=== PATIENT | female | born 1980 | race Hispanic/Latino ===

== ENCOUNTER 2016-10-13 15:10 | Emergency (ER) | payer MEDICAID, OTHER ==
[2016-10-13 15:10] VITALS: BMI 25.0
[2016-10-13 15:22] VITALS: BP 117/63; PULSE 94; RESP 18; TEMP 99.1; O2SAT 96
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
--- NOTE | 2016-10-13 17:08 | CT ---
PROCEDURE: CT HEAD WITHOUT CONTRAST. HISTORY: headache COMPARISON: 02/25/2014 TECHNIQUE: Axial computed tomography images were obtained through the head/brain without intravenous contrast. Radiation dose: Total exam DLP = 722 mGy-cm. This CT exam was performed using one or more of the following dose reduction techniques: Automated exposure control, adjustment of the mA and/or kV according to patient size, and/or use of iterative reconstruction technique. FINDINGS: HEMORRHAGE: No intracranial hemorrhage. BRAIN: No mass effect or edema. No atrophy or chronic microvascular ischemic changes. VENTRICLES: Unremarkable. No hydrocephalus. CALVARIUM: Unremarkable. PARANASAL SINUSES: Unremarkable as visualized. No significant inflammatory changes. MASTOID AIR CELLS: Unremarkable as visualized. No inflammatory changes. OTHER FINDINGS: None. IMPRESSION: Normal CT of the Head.
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
== END 2016-10-13 17:38 | disposition home or self-care (01) ==
LOC: ED 15:10
DX: S00.83XA Contusion of other part of head, initial encounter (principal); Y08.89XA Assault by other specified means, initial encounter; Y93.89 Activity, other specified; Y92.008 Other place in unspecified non-institutional (private) residence as the place of occurrence of the external cause

== ENCOUNTER 2017-01-10 20:04 | Emergency (ER) | payer MEDICAID ==
[2017-01-10 20:05] VITALS: BMI 25.0
[2017-01-10 20:18] VITALS: BP 113/73; PULSE 89; RESP 17; TEMP 98.7; O2SAT 99
[2017-01-10] MEDS ORDERED: Sodium Chloride 0.9% 1,000 ML IV STA (20:29)
[2017-01-10 20:50] LABS: BASO # 0.04 K/mm3 (0.0-2.0); BASO % 0.4 % (0.0-3.0); EOS # 0.1 (0.0-0.7); EOS % 1.2 % (1.5-5.0); GRAN # 8.14 (1.4-6.5); GRAN % 75.5 % (50.0-68.0); HEMATOCRIT 33.8 % (36.0-48.0); LYMPH % 18.4 % (22.0-35.0); MEAN CELL VOLUME 85.8 fl (80.0-105.0); MEAN CORPUSCULAR HEMOGLOBIN 28.4 pg (25.0-35.0); MEAN CORPUSCULAR HGB CONC 33.1 g/dl (31.0-37.0); MEAN PLATELET VOLUME 11.9 fl (7.0-11.0); MONO # 0.5 (0.1-0.6); MONO % 4.5 % (1.0-6.0); RED CELL DISTRIBUTION WIDTH 12.8 % (11.5-14.5); WHITE BLOOD COUNT 10.8 10^3/ul (4.5-11.0)
[2017-01-10 20:51] LABS: URINE BILIRUBIN NEGATIVE (NEGATIVE); URINE BLOOD NEGATIVE (NEGATIVE); URINE GLUCOSE (UA) NEGATIVE (NEGATIVE); URINE KETONE NEGATIVE (NEGATIVE); URINE LEUKOCYTE ESTERASE NEGATIVE Leu/uL (NEGATIVE); URINE PROTEIN NEGATIVE mg/dL (<30 mg/dL); URINE UROBILINOGEN 0.2 E.U./dL (<1 E.U./dL)
[2017-01-10 20:52] LABS: URINE APPEARANCE CLEAR (CLEAR); URINE COLOR YELLOW (YELLOW)
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
[2017-01-10 20:58] LABS: INR 0.99 (0.93-1.08); PARTIAL THROMBOPLASTIN TIME 30.6 Seconds (23.7-30.8)
[2017-01-10 21:08] LABS: ALB/GLOB RATIO 1.4 (1.1-1.8); ALKALINE PHOSPHATASE 53 U/L (38-133); ALT/SGPT 23 U/L (7-56); AST/SGOT 13 U/L (15-39); BILIRUBIN,TOTAL 0.3 mg/dL (0.2-1.3); BLOOD UREA NITROGEN 3 mg/dL (7-21); CALCIUM 9.1 mg/dL (8.4-10.5); CARBON DIOXIDE 20 mmol/L (21-33); CHLORIDE 107 mmol/L (98-107); GFR AFRICAN-AMERICAN > 60; GLUCOSE,RANDOM 86 mg/dL (70-110); LIPASE 32 U/L (23-300); POTASSIUM 3.7 mmol/L (3.6-5.0); SODIUM 137 mmol/L (132-148)
--- NOTE | 2017-01-10 22:34 | US ---
EXAM: US , Transvaginal CLINICAL HISTORY: 36 years old, female; Pain; Other: Llq pain; Gestational age or lmp: 11/27/16; ; Additional info: Left adexal pain TECHNIQUE: Real-time transvaginal obstetrical ultrasound of the maternal pelvis and a first trimester with image documentation. Transvaginal imaging was used for better evaluation of the fetus and adnexa. COMPARISON: No relevant prior studies available. FINDINGS: Gestation: A single intrauterine gestation is identified with a crown-rump length measuring 7.1 mm, corresponding to an approximate gestational age of 6 weeks and 4 days. cardiac activity is identified there is 133 beats per minute. Placenta/amniotic fluid: Cannot be adequately evaluated due to the early gestational age. Uterus/cervix: A single subcentimeter fibroid is identified, within the posterior body of the uterus. Ovaries: The right ovary is unremarkable in echogenicity and size measuring 2.5 x 1.5 x 2.8 cm. The left ovary measures 4.0 x 2.3 x 2.6 cm. Doppler blood flow is detected bilaterally. Free fluid: No free fluid. IMPRESSION: Single intrauterine gestation with an approximate gestational age of 6 weeks and 4 days. cardiac activity is identified. Subcentimeter fibroid. No free fluid.
== END 2017-01-10 22:40 | disposition home or self-care (01) ==
LOC: ED 20:04
DX: O20.0 Threatened abortion (principal); Z3A.01 Less than 8 weeks gestation of pregnancy
CPT/HCPCS: 76817; 80053; 81003; 83690; 84702; 84703; 85025; 85610; 85730; 96360; 99283; J7040

== ENCOUNTER 2017-02-03 14:44 | Emergency (ER) | payer MEDICAID ==
[2017-02-03 14:44] VITALS: BMI 25.0
[2017-02-03 14:57] VITALS: TEMP 98.6; O2SAT 98
--- NOTE | 2017-02-03 15:08 | ED PDOC ---
Arrival/HPI - General Chief Complaint: Abdominal Pain Time Seen by Provider: 02/03/17 15:01 Historian: Patient - History of Present Illness Narrative History of Present Illness (Text): 02/03/17 15:02 36 y/o female, last sonogram transvaginal 01/10/2017 show that she was 6 weeks and 4 days with the cardiac activitiy 133 bpm with subcentimeter fibroid, nkda, approx. 9 weeks?, c/o lower pelvic cramp and pain x 1 day. Pt. stated that she decided to abort her which her obgyn gave her misoprostol for termination, took the misoprostol intravaginally on 01/30/2017, been having pain/bleeding and passed out large amount of tissues on 02/01/2017, asymptomatic on 02/02/2017, started to have pain and cramp again with vaginal spotting today which indicated her to come to the ER. Pt. has no nausea or vomiting, no fever or chills, no night sweat, no dizziness, no rash, no palpitation, no change in vision, no abdominal pain, no nausea or vomiting, no dizziness, no homicidal or suicidal ideation, no auditory or visual hallucination, no other medical or psychological complaints. Past Medical History - Provider Review Nursing Documentation Reviewed: Yes - Past History Past History: No Previous - Infectious Disease Hx of Infectious Diseases: None - Tetanus Immunization Tetanus Immunization: Unknown - Past Medical History Past Medical History: No Previous - Cardiac Hx Cardiac Disorders: No - Pulmonary Hx Respiratory Disorders: No - Neurological Hx Seizures: Yes (epilepsy) - HEENT Hx HEENT Disorder: No - Renal Hx Renal Disorder: No - Endocrine/Metabolic Hx Endocrine Disorders: No - Hematological/Oncological Hx Cancer: No - Integumentary Hx Dermatological Disorder: No - Musculoskeletal/Rheumatological Hx Musculoskeletal Disorders: No - Gastrointestinal Hx Gastrointestinal Disorders: No - Genitourinary/Gynecological Hx Sexually Transmitted Diseases: No - Psychiatric Hx Anxiety: Yes Hx Substance Use: Yes (ON VIVITROL) - Surgical History Hx Section: Yes (X5) - Anesthesia Hx Anesthesia: Yes - Suicidal Assessment Feels Threatened In Home Enviroment: No Family/Social History - Physician Review Nursing Documentation Reviewed: Yes Family/Social History: Unknown Family HX Smoking Status: Smoker Currrent Status Unknown Hx Alcohol Use: No Hx Substance Use: Yes (ON VIVITROL) Substance used: heroine, cocaine Hx Substance Use Treatment: Yes Allergies/Home Meds Allergies/Adverse Reactions: Allergies No Known Allergies Allergy (Verified 10/13/16 15:15) Review of Systems - Review of Systems Constitutional: absent: Fatigue, Fevers Eyes: absent: Vision Changes Respiratory: absent: SOB, Cough Cardiovascular: absent: Chest Pain Gastrointestinal: absent: Abdominal Pain, Diarrhea, Nausea, Vomiting Genitourinary Female: Vaginal Bleeding, Other (+pelvic cramp). absent: Dysuria , Frequency, Vaginal Discharge Musculoskeletal: absent: Arthralgias, Back Pain Skin: absent: Rash, Pruritis Neurological: absent: Headache, Dizziness Psychiatric: absent: Anxiety, Depression, Suicidal Ideation Physical Exam Vital Signs Reviewed: Yes Vital Signs Temp Pulse Resp BP Pulse Ox 02/03/17 16:44 89 18 123/64 98 02/03/17 14:56 98.6 F 90 18 125/63 98 Temperature: Afebrile Blood Pressure: Normal Pulse: Regular Respiratory Rate: Normal Appearance: Positive for: Well-Appearing, Non-Toxic, Comfortable Pain Distress: Moderate Mental Status: Positive for: Alert and Oriented X 3 - Systems Exam Head: Present: Atraumatic, Normocephalic Pupils: Present: PERRL Extroacular Muscles: Present: EOMI Conjunctiva: Present: Normal Mouth: Present: Moist Mucous Membranes Neck: Present: Normal Range of Motion Respiratory/Chest: Present: Clear to Auscultation, Good Air Exchange. No: Respiratory Distress, Accessory Muscle Use, Wheezes, Retracting, Rhonchi Cardiovascular: Present: Regular Rate and Rhythm, Normal S1, S2. No: Murmurs Abdomen: Present: Normal Bowel Sounds. 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 No: Vaginal Lesions, Adenexal Tenderness, Adenexal Mass, Cervical Motion Tendernes, Odor Back: Present: Normal Inspection. No: CVA Tenderness Upper Extremity: Present: Normal Inspection. No: Cyanosis, Edema Lower Extremity: Present: Normal Inspection. No: Edema Neurological: Present: GCS=15, CN II-XII Intact, Speech Normal Skin: Present: Warm, Dry, Normal Color. No: Rashes Psychiatric: Present: Alert, Oriented x 3, Normal Insight, Normal Concentration Medical Decision Making ED Course and Treatment: 02/03/17 15:16 -labs/ua/beta hcg -type and screen -transvaginal sonogram -IVF/tylenol 650mg po -Observe and reassess 02/03/17 17:17 -Labs are non-significant except beta hcg 2538 from [id number], this is significantly decreased which is likely signs of complete -UA show possible wbc 5-10 with moderate bacteria, urine culture ordered -Blood type: O+ -Sonogram show: thickened endomettrium with may represent hemorrhage and there is slight increase vascularity within the endometrium near the fundus and possible retained products. NO evidence of intrauterine gestation. -Discussed the case with Dr. Ferraro and agreed to consult with our obgyn as the patient's obgyn is from [facility]. 02/03/17 17:38 -I spoke to DR. Aguilar (obgyn), discussed the case in detail including labs/ radiology results and the previous sonogram from 12/2016 with confirmed intrauterine , no observation or transfer indicated at this point, no D &C indicated at this time either, suggest to treat the pain and discharge home with repeat beta hcg in 3 days. -I discussed the consult with DR. Ferraro and he agreed on the dispo and agreed with NSAIDs as pain med. -IV toradol ordered, no active bleeding noted but there is clot. -Discharge home with giovanna avitiad, your beta hcg from 12/2016 was 16534 and today 02/03/2017 is 2538, YOU HAVE TO REPEAT THE BETA HCG ON 02/06/2017 TO CONFIRMED THERES IS TREND AND TO ENSURE THERE IS NO RETAINED PRODUCT, follow up with your own pmd and obgyn within 2 days, return to the ER for any new or worsening signs or symptoms. - Lab Interpretations Lab Results: 02/03/17 15:10 02/03/17 15:10 Lab Results 02/03/17 15:50: Urine Color Yellow, Urine Appearance Sl cloudy, Urine pH 6.5, Ur Specific [place] <= 1.005, Urine Protein Negative, Urine Glucose (UA) Negative, Urine Ketones Negative, Urine Blood Large H, Urine Nitrate Negative, Urine Bilirubin Negative, Urine Urobilinogen 0.2, Ur Leukocyte Esterase Negative , Urine RBC 20 - 25, Urine WBC 5 - 10, Ur Epithelial Cells 6 - 8, Urine Bacteria Mod 02/03/17 15:10: Blood Type O POSITIVE, Antibody Screen Negative, BBK History Checked No verified bt 02/03/17 15:10: Sodium 139, Potassium 3.6, Chloride 105, Carbon Dioxide 24, Anion Gap 14, BUN 7, Creatinine 0.6, Est GFR ( Amer) > 60, Est GFR (Non- Af Amer) > 60, Random Glucose 85, Calcium 8.8, Total Bilirubin 0.4, AST 14, ALT 18, Alkaline Phosphatase 67, Total Protein 7.0, Albumin 3.9, Globulin 3.1, Albumin/Globulin Ratio 1.3 02/03/17 15:10: Beta HCG, Quant 2538.40 H 02/03/17 15:10: WBC 10.4, RBC 4.05, Hgb 11.8 L, Hct 34.8 L, MCV 85.9, MCH 29.1, MCHC 33.9, RDW 12.7, Plt Count 214, MPV 11.9 H, Gran % 76.2 H, Lymph % (Auto) 17.1 L, Davidson % (Auto) 4.4, Eos % (Auto) 1.9, Baso % (Auto) 0.4, Gran # 7.88 H, Lymph # 1.8, Davidson # 0.5, Eos # 0.2, Baso # 0.04 I have reviewed the lab results: Yes Interpretation: Abnormal lab values (beta hcg 2538 from [id number], +UTI) - RAD Interpretation Radiology Orders: 02/03/17 15:09 TRANSVAGINAL [US] Stat HISTORY: s/p induced x 4 days ago, c/o pain/bleedi COMPARISON: Comparison made with prior study 01/10/2017. TECHNIQUE: Transabdominal/transvaginal sonographic evaluation of the pelvis performed. . FINDINGS: UTERUS: Uterus is retroverted measuring approximately 10.0 x 8.1 x 6.8 cm cm. Normal in size and appearance. No fibroid or other mass lesion seen. ENDOMETRIUM: Endometrium is thickened measuring nearly 1.5 cm. Slight increased vascularity within the endometrium in the fundal region. Findings could represent retained products of conception at this level. . Endometrial hemorrhage and/or of clot within presumably also on accounts for some of the thickened endometrium though most of the remaining the endometrium the demonstrates no significant increased vascularity. No evidence of intrauterine gestation. Correlation with serial serum beta HCG and serial ultrasound recommended as the possibility of an ectopic cannot be excluded. CERVIX: Cervix measures approximate 3.1 cm. RIGHT OVARY: Measures approximately 3.0 x 1.1 x 1.3 cm. No solid mass. Normal flow. LEFT OVARY: Measures approximately 3.5 x 2.1 x 2.1 cm. No solid mass. Normal flow. FREE FLUID: No significant free fluid noted. OTHER FINDINGS: None. IMPRESSION: Thickened endometrium part of which may represent hemorrhage and/or classic within the endometrial canal however there is slight increased vascularity within the endometrium near the fundus and possible retained products must be excluded. Additionally, no evidence of intrauterine gestation. Correlation with serial serum beta HCG and serial ultrasound recommended as the possibility of ectopic cannot be excluded on this study. Note that these findings were discussed with emergency room MARTI Noguera at approximately 4:40 p.m. with written down and read back verification. Worm Farmer: Radiologist - Medication Orders Current Medication Orders: Discontinued Medications Acetaminophen (Tylenol 325mg Tab) 650 mg PO STAT STA Stop: 02/03/17 15:11 Last Admin: 02/03/17 15:32 Dose: 650 mg Sodium Chloride (Sodium Chloride 0.9%) 1,000 mls @ 999 mls/hr IV .Q1H1M STA Stop: 02/03/17 16:09 Last Admin: 02/03/17 15:32 Dose: 999 mls/hr - PA / LEASING DIRECTOR / Resident Statement / has reviewed & agrees with the documentation as recorded. Disposition/Present on Arrival - Present on Arrival Any Indicators Present on Arrival: No History of DVT/PE: No History of Uncontrolled Diabetes: No Urinary Catheter: No History of Decub. Ulcer: No History Surgical Site Infection Following: None - Disposition Have Diagnosis and Disposition been Completed?: Yes Diagnosis: , Vaginal bleeding, UTI (urinary tract infection) Disposition: HOME/ ROUTINE Disposition Time: 17:44 Patient Plan: Discharge Patient Problems: Current Active Problems Problem Status Onset Acute Vaginal bleeding Acute Condition: IMPROVED Additional Instructions: -Discharge home with giovanna avitiad, your beta hcg from 12/2016 was 71951 and today 02/03/2017 is 2538, YOU HAVE TO REPEAT THE BETA HCG ON 02/06/2017 TO CONFIRMED THERES IS TREND AND TO ENSURE THERE IS NO RETAINED PRODUCT, follow up with your own pmd and obgyn within 2 days, return to the ER for any new or worsening signs or symptoms. Prescriptions: Ibuprofen [Motrin Tab] 600 mg PO QID PRN #26 tab PRN Reason: Other Nitrofurantoin Macrocrystals [Macrobid] 100 mg PO BID #14 cap Referrals: PCP,RILEY [Primary Care Provider] - Follow up with primary Larry Aguilar DO [Staff Provider] - Follow up with primary [facility] [place] - Follow up with primary Forms: [facility] ([place]), WORK NOTE
[2017-02-03] MEDS ORDERED: Sodium Chloride 0.9% 1,000 ML IV STA (15:09)
[2017-02-03 15:55] LABS: BASO # 0.04 K/mm3 (0.0-2.0); BASO % 0.4 % (0.0-3.0); EOS # 0.2 (0.0-0.7); EOS % 1.9 % (1.5-5.0); GRAN # 7.88 (1.4-6.5); GRAN % 76.2 % (50.0-68.0); HEMATOCRIT 34.8 % (36.0-48.0); LYMPH # 1.8 (1.2-3.4); LYMPH % 17.1 % (22.0-35.0); MEAN CELL VOLUME 85.9 fl (80.0-105.0); MEAN CORPUSCULAR HEMOGLOBIN 29.1 pg (25.0-35.0); MEAN CORPUSCULAR HGB CONC 33.9 g/dl (31.0-37.0); MEAN PLATELET VOLUME 11.9 fl (7.0-11.0); MONO # 0.5 (0.1-0.6); MONO % 4.4 % (1.0-6.0); RED CELL DISTRIBUTION WIDTH 12.7 % (11.5-14.5); WHITE BLOOD COUNT 10.4 10^3/ul (4.5-11.0)
[2017-02-03 15:56] LABS: PH,URINE 6.5 (4.7-8.0); URINE BILIRUBIN NEGATIVE (NEGATIVE); URINE BLOOD LARGE (NEGATIVE); URINE GLUCOSE (UA) NEGATIVE (NEGATIVE); URINE KETONE NEGATIVE (NEGATIVE); URINE LEUKOCYTE ESTERASE NEGATIVE Leu/uL (NEGATIVE); URINE PROTEIN NEGATIVE mg/dL (<30 mg/dL); URINE UROBILINOGEN 0.2 E.U./dL (<1 E.U./dL)
[2017-02-03 16:05] LABS: URINE APPEARANCE SL CLOUDY (CLEAR); URINE COLOR YELLOW (YELLOW)
[2017-02-03 16:09] LABS: ALB/GLOB RATIO 1.3 (1.1-1.8); ALKALINE PHOSPHATASE 67 U/L (38-126); ALT/SGPT 18 U/L (7-56); AST/SGOT 14 U/L (14-36); BILIRUBIN,TOTAL 0.4 mg/dL (0.2-1.3); BLOOD UREA NITROGEN 7 mg/dL (7-21); CALCIUM 8.8 mg/dL (8.4-10.5); CARBON DIOXIDE 24 mmol/L (21-33); CHLORIDE 105 mmol/L (98-107); GFR AFRICAN-AMERICAN > 60; GLUCOSE,RANDOM 85 mg/dL (70-110); POTASSIUM 3.6 mmol/L (3.6-5.0); SODIUM 139 mmol/L (132-148)
[2017-02-03 16:10] LABS: URINE BACTERIA MOD (NEG); URINE RBC 20 - 25 /hpf (0-2)
--- NOTE | 2017-02-03 16:45 | US ---
HISTORY: s/p induced x 4 days ago, c/o pain/bleedi COMPARISON: Comparison made with prior study 01/10/2017. TECHNIQUE: Transabdominal/transvaginal sonographic evaluation of the pelvis performed. . FINDINGS: UTERUS: Uterus is retroverted measuring approximately 10.0 x 8.1 x 6.8 cm cm. Normal in size and appearance. No fibroid or other mass lesion seen. ENDOMETRIUM: Endometrium is thickened measuring nearly 1.5 cm. Slight increased vascularity within the endometrium in the fundal region. Findings could represent retained products of conception at this level. . Endometrial hemorrhage and/or of clot within presumably also on accounts for some of the thickened endometrium though most of the remaining the endometrium the demonstrates no significant increased vascularity. No evidence of intrauterine gestation. Correlation with serial serum beta HCG and serial ultrasound recommended as the possibility of an ectopic cannot be excluded. CERVIX: Cervix measures approximate 3.1 cm. RIGHT OVARY: Measures approximately 3.0 x 1.1 x 1.3 cm. No solid mass. Normal flow. LEFT OVARY: Measures approximately 3.5 x 2.1 x 2.1 cm. No solid mass. Normal flow. FREE FLUID: No significant free fluid noted. OTHER FINDINGS: None. IMPRESSION: Thickened endometrium part of which may represent hemorrhage and/or classic within the endometrial canal however there is slight increased vascularity within the endometrium near the fundus and possible retained products must be excluded. Additionally, no evidence of intrauterine gestation. Correlation with serial serum beta HCG and serial ultrasound recommended as the possibility of ectopic cannot be excluded on this study. Note that these findings were discussed with emergency room MARTI Noguera at approximately 4:40 p.m. with written down and read back verification.
[2017-02-03 18:17] VITALS: BP 118/57; PULSE 86; RESP 12
== END 2017-02-03 18:16 | disposition home or self-care (01) ==
LOC: ED 14:44
DX: N39.0 Urinary tract infection, site not specified (principal); O03.6 Delayed or excessive hemorrhage following complete or unspecified spontaneous abortion
CPT/HCPCS: 76830; 80053; 81001; 84702; 85025; 86850; 86900; 87086; 96374; 99284; J1885; J7040

== ENCOUNTER 2017-03-11 12:23 | Emergency (ER) | payer MEDICAID ==
[2017-03-11 12:24] VITALS: BMI 25.0
[2017-03-11 12:38] VITALS: BP 109/69; PULSE 82; TEMP 99.1
[2017-03-11 12:42] VITALS: RESP 17
[2017-03-11] MEDS ORDERED: cefTRIAXone (Rocephin) 1 gm Inj IM STA (13:18)
--- NOTE | 2017-03-11 13:24 | ED PDOC ---
Arrival/HPI - General Chief Complaint: Female Genitourinary Time Seen by Provider: 03/11/17 12:37 Historian: Patient - History of Present Illness Narrative History of Present Illness (Text): 03/11/17 13:20 36yo female who present to ED for removal of a lodged tampon x 3days. States she felt the tampon today. She states she forgot that she had a tampon on, and had sex which pushed the tampon deeper. Notes odorous smell from her vagina. she denies fever, chills, abdominal pain, urinary symptoms. Past Medical History - Provider Review Nursing Documentation Reviewed: Yes - Past History Past History: No Previous - Infectious Disease Hx of Infectious Diseases: None - Tetanus Immunization Tetanus Immunization: Unknown - Past Medical History Past Medical History: No Previous - Cardiac Hx Cardiac Disorders: No - Pulmonary Hx Respiratory Disorders: No - Neurological Hx Seizures: Yes (epilepsy) - HEENT Hx HEENT Disorder: No - Renal Hx Renal Disorder: No - Endocrine/Metabolic Hx Endocrine Disorders: No - Hematological/Oncological Hx Cancer: No - Integumentary Hx Dermatological Disorder: No - Musculoskeletal/Rheumatological Hx Musculoskeletal Disorders: No - Gastrointestinal Hx Gastrointestinal Disorders: No - Genitourinary/Gynecological Hx Sexually Transmitted Diseases: No - Psychiatric Hx Anxiety: Yes Hx Substance Use: Yes (ON VIVITROL) - Surgical History Hx Section: Yes (X5) - Anesthesia Hx Anesthesia: Yes - Suicidal Assessment Feels Threatened In Home Enviroment: No Family/Social History - Physician Review Nursing Documentation Reviewed: Yes Family/Social History: Unknown Family HX Smoking Status: Smoker Currrent Status Unknown Hx Alcohol Use: No Hx Substance Use: Yes (ON VIVITROL) Substance used: heroine, cocaine Hx Substance Use Treatment: Yes Allergies/Home Meds Allergies/Adverse Reactions: Allergies No Known Allergies Allergy (Verified 03/11/17 12:38) Review of Systems - Physician Review All systems were reviewed & negative as marked: Yes - Review of Systems Constitutional: Normal Eyes: Normal ENT: Normal Respiratory: Normal Cardiovascular: Normal Gastrointestinal: Normal Genitourinary Female: Other (Lodged foreign body) Musculoskeletal: Normal Skin: Normal Neurological: Normal Endocrine: Normal Hemo/Lymphatic: Normal Psychiatric: Normal Physical Exam Vital Signs Reviewed: Yes Vital Signs Temp Pulse Resp BP Pulse Ox 03/11/17 13:49 17 99 03/11/17 12:39 99.1 F 82 17 109/69 97 03/11/17 12:37 99.1 F 82 18 109/69 97 Temperature: Afebrile Blood Pressure: Normal Pulse: Regular Respiratory Rate: Normal Appearance: Positive for: Well-Appearing, Non-Toxic, Comfortable Pain Distress: None Mental Status: Positive for: Alert and Oriented X 3 - Systems Exam Head: Present: Atraumatic, Normocephalic Pupils: Present: PERRL Extroacular Muscles: Present: EOMI Conjunctiva: Present: Normal Mouth: Present: Moist Mucous Membranes Neck: Present: Normal Range of Motion Respiratory/Chest: Present: Clear to Auscultation, Good Air Exchange. No: Respiratory Distress, Accessory Muscle Use Cardiovascular: Present: Regular Rate and Rhythm, Normal S1, S2. No: Murmurs Abdomen: Present: Normal Bowel Sounds. No: Tenderness, Distention, Peritoneal Signs Genitourinary/Pelvic Exam: Present: Vaginal Bleeding (blood pool noted in vault) , Odor, Other (Tampon noted and removed) Back: Present: Normal Inspection Upper Extremity: Present: Normal Inspection. No: Cyanosis, Edema Lower Extremity: Present: Normal Inspection. No: Edema Neurological: Present: GCS=15, CN II-XII Intact, Speech Normal Skin: Present: Warm, Dry, Normal Color. No: Rashes Psychiatric: Present: Alert, Oriented x 3, Normal Insight, Normal Concentration Medical Decision Making ED Course and Treatment: 03/11/17 20:11 Very odrous tampon was removed by Dr. Boss with me in the room. PT was afebrile. she was however tx in ED with Rocephin and Dc home with Flagyl and PCN to avoid TSS. She was referred to her [employer]ILRO[employer] MECH[employer]IC. - Medication Orders Current Medication Orders: Discontinued Medications Ceftriaxone Sodium (Rocephin) 1 gm IM STAT STA PRN Reason: Protocol Stop: 03/11/17 13:19 Last Admin: 03/11/17 13:49 Dose: 1 gm IM Administration Charges Document 03/11/17 13:49 [email or web address] (Rec: 03/11/17 13:49 [email or web address] [facility] [id number]) Injection Site MAR Injection Site Left Gluteus Hira Charges for Administration # of IM Administrations 1 Disposition/Present on Arrival - Present on Arrival Any Indicators Present on Arrival: No History of DVT/PE: No History of Uncontrolled Diabetes: No Urinary Catheter: No History of Decub. Ulcer: No History Surgical Site Infection Following: None - Disposition Have Diagnosis and Disposition been Completed?: Yes Diagnosis: Foreign body Disposition: HOME/ ROUTINE Disposition Time: 13:30 Patient Plan: Discharge Condition: STABLE Discharge Instructions (ExitCare): Vaginal Foreign Body (ED) Additional Instructions: Follow up with your [employer]ILRO[employer] MECH[employer]IC Return to ED for any new symptoms Prescriptions: Metronidazole [Flagyl] 500 mg PO BID #14 tablet Penicillin VK [Penicillin VK Tab] 250 mg PO BID 10 Days #40 tab Referrals: [facility] [Outside] - Follow up with primary Forms: [employer] [facility] (Croatian)
[2017-03-11 13:50] VITALS: O2SAT 99
== END 2017-03-11 13:50 | disposition home or self-care (01) ==
LOC: ED 12:23
DX: T19.2XXA Foreign body in vulva and vagina, initial encounter (principal); X58.XXXA Exposure to other specified factors, initial encounter
CPT/HCPCS: 96372; 99283; J0696

== ENCOUNTER 2017-04-05 17:31 | Emergency (ER) | payer MEDICAID ==
[2017-04-05 17:40] VITALS: TEMP 98.5; BMI 25.8
--- NOTE | 2017-04-05 18:38 | ED PDOC ---
"Arrival/HPI - General Chief Complaint: Seizure Time Seen by Provider: 04/05/17 17:36 Historian: Patient - History of Present Illness Narrative History of Present Illness (Text): 04/05/17 18:38 A 36 year old female, whose past medical history includes bipolar disorder and seizure disorder, more frequent after head injury, (last seizure episode was 2015) was brought in by EMS to the emergency department s/p seizure episode complaining of headache. Patient reports last seizure was in 2015. Reports loss of consciousness, mother witnessed, for 3 to 5 minutes. Patient doesn't remember what happened before the seizure, but is aware of situation after episodes. Denies wetting herself and is unsure if bit her tongue. Reports she takes Ativan and Topamax medications, but hasn't taken Topamax today. Patient is an occasional drinker, last drink was yesterday. Denies any other complaints at this time. Symptom Onset: Sudden Symptom Course: Improving Activities at Onset: Rest Context: Home Past Medical History - Provider Review Nursing Documentation Reviewed: Yes - Past History Past History: No Previous - Infectious Disease Hx of Infectious Diseases: None - Tetanus Immunization Tetanus Immunization: Unknown - Past Medical History Past Medical History: No Previous - Cardiac Hx Cardiac Disorders: No - Pulmonary Hx Respiratory Disorders: No - Neurological Hx Seizures: Yes (epilepsy) - HEENT Hx HEENT Disorder: No - Renal Hx Renal Disorder: No - Endocrine/Metabolic Hx Endocrine Disorders: No - Hematological/Oncological Hx Cancer: No - Integumentary Hx Dermatological Disorder: No - Musculoskeletal/Rheumatological Hx Musculoskeletal Disorders: No - Gastrointestinal Hx Gastrointestinal Disorders: No - Genitourinary/Gynecological Hx Sexually Transmitted Diseases: No - Psychiatric Hx Anxiety: Yes Hx Depression: Yes Hx Substance Use: Yes (ON VIVITROL) - Surgical History Hx Section: Yes (X5) - Anesthesia Hx Anesthesia: Yes - Suicidal Assessment Feels Threatened In Home Enviroment: No Family/Social History - Physician Review Nursing Documentation Reviewed: Yes Family/Social History: No Known Family HX Smoking Status: Light Smoker < 10 Cigarettes Daily Hx Alcohol Use: Yes Frequency of alcohol use: Socially Hx Substance Use: Yes (ON VIVITROL) Substance used: heroine, cocaine Hx Substance Use Treatment: Yes Allergies/Home Meds Allergies/Adverse Reactions: Allergies No Known Allergies Allergy (Verified 04/05/17 17:56) Home Medications: Home Meds Medication Instructions Recorded Confirmed Citalopram Hydrobromide [Celexa] 20 mg PO DAILY 04/05/17 04/05/17 LORazepam [Ativan] 0.5 mg PO BID 04/05/17 04/05/17 Topiramate [Topamax] 50 mg PO TID 04/05/17 04/05/17 Review of Systems - Physician Review All systems were reviewed & negative as marked: Yes - Review of Systems Constitutional: absent: Fevers Neurological: Headache, Seizure. absent: Speech Changes Physical Exam Vital Signs Reviewed: Yes Vital Signs Temp Pulse Resp BP Pulse Ox 04/05/17 20:15 85 16 122/77 95 04/05/17 17:39 98.5 F 80 20 107/63 99 Temperature: Afebrile Blood Pressure: Normal Pulse: Regular Respiratory Rate: Normal Appearance: Positive for: Well-Appearing, Non-Toxic, Comfortable, Other (not postictal) Pain Distress: None Mental Status: Positive for: Alert and Oriented X 3 - Systems Exam Head: Present: Atraumatic, Normocephalic (no tongue injury) Pupils: Present: PERRL Extroacular Muscles: Present: EOMI Conjunctiva: Present: Normal Mouth: Present: Moist Mucous Membranes Neck: Present: Normal Range of Motion Respiratory/Chest: Present: Clear to Auscultation, Good Air Exchange, Other (no chest wall tenderness). No: Respiratory Distress, Accessory Muscle Use Cardiovascular: Present: Regular Rate and Rhythm, Normal S1, S2. No: Murmurs Abdomen: Present: Normal Bowel Sounds. No: Tenderness, Distention, Peritoneal Signs Back: Present: Normal Inspection Upper Extremity: Present: Normal Inspection, Normal ROM. No: Cyanosis, Edema Lower Extremity: Present: Normal Inspection, Normal ROM, Other (peripheral pulses 2+). No: Edema Neurological: Present: GCS=15, CN II-XII Intact, Speech Normal, Other (no focal deficits) Skin: Present: Warm, Dry, Normal Color. No: Rashes Psychiatric: Present: Alert, Oriented x 3, Normal Insight, Normal Concentration Medical Decision Making ED Course and Treatment: 04/05/17 18:35 Impression: A 36 year old female s/p seizure episode with headache. Plan: -- labs -- Reassess and disposition Progress Notes: 04/05/17 20:02 Patient is awake, alert and oriented X 4, seizure free during her 2 hr stay in the emergency department. Electrolyte within normal limits, waiting for Topamax level. Informed patient that will call if any abnormalities with Topamax levels. Discussed patient needs to be complaint withe medications without any alcohol use. Patient in agreement with plan to be discharged home. Patient is stable for discharge. Patient was instructed to follow up with physician or return if symptoms worsen or new concerning symptoms arise. - Lab Interpretations Lab Results: 04/05/17 18:50 04/05/17 18:50 Lab Results 04/05/17 18:50: Sodium 141, Potassium 3.9, Chloride 106, Carbon Dioxide 25, Anion Gap 13, BUN 10, Creatinine 0.7, Est GFR ( Amer) > 60, Est GFR (Non- Af Amer) > 60, Random Glucose 91, Calcium 9.8, Magnesium 2.3 H, Total Bilirubin 0.6, AST 20, ALT 24, Alkaline Phosphatase 67, Total Protein 7.9, Albumin 4.5, Globulin 3.4, Albumin/Globulin Ratio 1.3 04/05/17 18:50: WBC 7.7 D, RBC 4.31, Hgb 12.2, Hct 37.8, MCV 87.7, MCH 28.3, MCHC 32.3, RDW 12.3, Plt Count 227, MPV 12.3 H, Gran % 54.7, Lymph % (Auto) 35.7 H, [place] % (Auto) 6.5 H, Eos % (Auto) 2.1, Baso % (Auto) 1.0, Gran # 4.20, Lymph # 2.7, [place] # 0.5, Eos # 0.2, Baso # 0.08 I have reviewed the lab results: Yes - Scribe Statement The provider has reviewed the documentation as recorded by the Sayra Acevedo Provider Scribe Attestation: All medical record entries made by the Scribe were at my direction and personally dictated by me. I have reviewed the chart and agree that the record accurately reflects my personal performance of the history, physical exam, medical decision making, and the department course for this patient. I have also personally directed, reviewed, and agree with the discharge instructions and disposition. Disposition/Present on Arrival - Present on Arrival Any Indicators Present on Arrival: No History of DVT/PE: No History of Uncontrolled Diabetes: No Urinary Catheter: No History of Decub. Ulcer: No History Surgical Site Infection Following: None - Disposition Have Diagnosis and Disposition been Completed?: Yes Diagnosis: Seizure Disposition: HOME/ ROUTINE Disposition Time: 20:02 Patient Plan: Discharge Condition: FAIR Discharge Instructions (ExitCare): Epilepsy (ED) Print Language: CHADIAN Referrals: [facility] at [facility] [place] [Outside] - Follow up with primary Forms: Traveler | VIP (Khmer)"
[2017-04-05 19:06] LABS: BASO # 0.08 K/mm3 (0.0-2.0); EOS # 0.2 (0.0-0.7); EOS % 2.1 % (1.5-5.0); GRAN # 4.2 (1.4-6.5); GRAN % 54.7 % (50.0-68.0); HEMATOCRIT 37.8 % (36.0-48.0); LYMPH # 2.7 (1.2-3.4); LYMPH % 35.7 % (22.0-35.0); MEAN CELL VOLUME 87.7 fl (80.0-105.0); MEAN CORPUSCULAR HEMOGLOBIN 28.3 pg (25.0-35.0); MEAN CORPUSCULAR HGB CONC 32.3 g/dl (31.0-37.0); MEAN PLATELET VOLUME 12.3 fl (7.0-11.0); MONO # 0.5 (0.1-0.6); MONO % 6.5 % (1.0-6.0); RED CELL DISTRIBUTION WIDTH 12.3 % (11.5-14.5); WHITE BLOOD COUNT 7.7 10^3/ul (4.5-11.0)
[2017-04-05 19:15] LABS: ALB/GLOB RATIO 1.3 (1.1-1.8); ALKALINE PHOSPHATASE 67 U/L (38-126); ALT/SGPT 24 U/L (7-56); AST/SGOT 20 U/L (14-36); BILIRUBIN,TOTAL 0.6 mg/dL (0.2-1.3); BLOOD UREA NITROGEN 10 mg/dL (7-21); CALCIUM 9.8 mg/dL (8.4-10.5); CARBON DIOXIDE 25 mmol/L (21-33); CHLORIDE 106 mmol/L (98-107); GFR AFRICAN-AMERICAN > 60; GLUCOSE,RANDOM 91 mg/dL (70-110); MAGNESIUM 2.3 mg/dL (1.7-2.2); POTASSIUM 3.9 mmol/L (3.6-5.0); SODIUM 141 mmol/L (132-148); TOTAL PROTEIN 7.9 g/dL (5.8-8.3)
[2017-04-05 20:16] VITALS: BP 122/77; PULSE 85; RESP 16; O2SAT 95
== END 2017-04-05 20:16 | disposition home or self-care (01) ==
LOC: ED 17:31
DX: G40.909 Epilepsy, unspecified, not intractable, without status epilepticus (principal)

== ENCOUNTER 2018-04-12 01:18 | Emergency (ER) | payer MEDICAID ==
[2018-04-12 01:27] VITALS: BMI 25.0
[2018-04-12 01:30] VITALS: BP 120/70; PULSE 72; RESP 16; TEMP 98.6; O2SAT 99
== END 2018-04-12 02:15 | disposition left against medical advice (07) ==
LOC: ED 01:18
DX: Z02.89 Encounter for other administrative examinations (principal); Y09 Assault by unspecified means